=== PATIENT | male | born 1980 | race Caucasian/White ===

== ENCOUNTER → 2020-08-10 | Outpatient (CLI) | payer OTHER, MEDICARE ==
--- NOTE | 2020-08-10 09:24 | MR ---
EXAMINATION TYPE: MR brain wo con DATE OF EXAM: 08/10/2020 COMPARISON: NONE HISTORY: Memory loss, TBI TECHNIQUE: T1-weighted sagittal, T2, FLAIR, and diffusion axial, and T2 coronal coronal views of the brain are submitted. FINDINGS: There is no evidence of acute ischemia. The ventricles, basal cisterns, and sulci overlying the conv exities are consistent with the patient's age. There is no mass effect. Tiny area of signal involvi ng the medial aspect of the left temporal lobe axial image 14 too small to characterize. Craniocervical junction maintained. Sella turcica has a normal appearance. No cerebellopontine angle mass. Changes of chronic sinusitis. IMPRESSION: 1. No acute intracranial process. There is a tiny 4 mm area of abnormal signal involving the medial t emporal too small to characterize. Short-term follow-up could be obtained. 2. Ethmoid moderate to severe chronic sinusitis.
== END | disposition home or self-care (01) ==
LOC: RADMRIMAIN 08:22
PROVIDERS: ATTEND Physician Assistant
DX: R93.89 Abnormal findings on diagnostic imaging of other specified body structures (principal); R41.3 Other amnesia
CPT/HCPCS: 70551

== ENCOUNTER → 2020-11-22 | Outpatient (CLI) | payer MEDICARE ==
--- NOTE | 2020-11-23 06:17 | MR ---
EXAMINATION TYPE: MR brain wo con DATE OF EXAM: 11/22/2020 COMPARISON: 08/10/2020 HISTORY: Abnormal prior MRI to compare. Memory loss, TBI. Multiplanar multiecho imaging of the brain was performed without contrast. Ventricles have normal siz e. There is no mass effect nor midline shift. There is no sign of intracranial hemorrhage. There is n o evidence of cerebral edema. Diffusion images show no evidence of an acute infarct. There is mucosal thickening in the ethmoid and frontal sinuses. Brainstem is intact. Corpus callosum is intact. Sella turcica appears normal. There is a rounded focus of increased signal in the left side insula of the left temporal lobe measur ing 6 mm on the T2 and FLAIR images. There is no evidence of orbital mass. There is no evidence of po sterior fossa mass. IMPRESSION: Small high signal focus in the insula left temporal lobe without change. Sinusitis unchanged. No acut e intracranial abnormality.
== END | disposition home or self-care (01) ==
LOC: RADMRIMAIN 21:29
PROVIDERS: ATTEND Pediatrics
DX: J32.9 Chronic sinusitis, unspecified (principal)
CPT/HCPCS: 70551

== ENCOUNTER → 2021-04-23 | Outpatient (CLI) | payer MEDICARE, OTHER ==
--- NOTE | 2021-04-23 20:18 | MR ---
EXAMINATION TYPE: MR brain wo con DATE OF EXAM: 04/23/2021 COMPARISON: MRI brain November 22, 2020 HISTORY: Abnormal brain MRI, dizziness, history of left side numbness, loss of sensation in hands, vi sual disturbances. History of TBI, service. TECHNIQUE: Multiplanar, multisequence imaging of the brain and brainstem is performed without IV cont rast. FINDINGS: Diffusion weighted images demonstrate no evidence of a recent infarct or other diffusion abnormality. There is no extraaxial fluid collection or new significant white matter signal abnormality. Prior 6 mm T2 hyperintense focus anterior left temporal lobe is now not clearly seen. The ventricular system and cisternal spaces are normal in size and appearance. The brain volume is age appropriate. T2 Star weighted images show no suspicious intraparenchymal blood products. Midline structures demonstrate normal morphology. The craniocervical junction appears within normal limits. Normal vascular flow voids are present. Mild to moderate mucosal thickening involving ethmoid sinuses bilaterally remains present. Globes are intact bilaterally. IMPRESSION: Mild chronic ethmoid sinus disease otherwise unremarkable study.
== END | disposition home or self-care (01) ==
LOC: RADMRIMAIN 19:16
PROVIDERS: ATTEND Pediatrics
DX: R20.0 Anesthesia of skin (principal); R93.0 Abnormal findings on diagnostic imaging of skull and head, not elsewhere classified; J32.2 Chronic ethmoidal sinusitis
CPT/HCPCS: 70551